=== PATIENT | female | born 1980 | race American Indian/Alaskan Native ===

== ENCOUNTER 2017-07-23 07:25 | Day surgery (SDC) | payer MEDICAID ==
--- NOTE | 2017-07-22 11:43 | Anesthesia Consultation ---
Anesthesia Consult and Med Hx Date of service: 07/23/17 - Airway Anesthetic Teeth Evaluation: Good ROM Head & Neck: Adequate Mental/Hyoid Distance: Adequate Mallampati Class: Class II Intubation Access Assessment: Probably Good - Pulmonary Exam CTA: Yes - Pulmonary Hx Smoking: Yes (1/2PPD) Hx Asthma: Yes (last treated 2 yrs ago) - Central Nervous System Hx Back Pain: Yes Hx Psychiatric Problems: No - Hematic Hx Anemia: Yes
[2017-07-22 12:03] LABS: Basophils % (Auto) 0.5 % (0.0-1.8); Eosinophils % (Auto) 1.8 % (0.0-4.3); Hematocrit 29.7 % (30.3-42.9); Hemoglobin 9.3 gm/dl (10.1-14.3); Mean Corpuscular HGB Conc 31 % (30-34); Mean Corpuscular Hemoglobin 21 pg (28-32); Mean Corpuscular Volume 67 fl (79-97); Platelet Count 240 K/mm3 (140-440); Red Blood Count 4.46 M/mm3 (3.65-5.03); Red Cell Distribution Width 20.2 % (13.2-15.2)
[~2017-07-23 07:25] MED LIST: DECADRON ONE; DILAUDID ONE; DIPRIVAN 10 MG/ML IV ONE; LACTATED RINGERS 1,000 ML IV SCH; PEPCID PO NR; VERSED IV NR; XYLOCAINE MPF 2% ONE; ZOFRAN ONE
--- NOTE | 2017-07-23 07:46 | Short Stay Summary ---
Short Stay Documentation Date of service: 07/23/17 Narrative H&P: Pt is a 37yo BF LMP 06/29/17 presents for surgical evaluation and treatment for prolonged heavy vaginal bleeding unresponsive to hormonal therapy. She is now scheduled for a Novasure endometrial ablation. - History Principal diagnosis: DUB H&P: obtained from office Past Medical History: other (asthma; depression) Past Surgical History: , hernia repair, Other (multiple neck surgeries) Social history: no significant social history, single - Allergies and Medications Current Medications: Allergies codeine Allergy (Verified 07/20/17 16:42) respiratory issues, itch latex Allergy (Verified 07/20/17 16:42) whelps Home Medications Medication Instructions Recorded Confirmed Last Taken Type Gabapentin [Gralise] 600 mg PO BID 07/20/17 07/20/17 Unknown History Oxycodone HCl/Acetaminophen 1 each PO Q6HR PRN 07/20/17 07/20/17 Unknown History [Percocet 10/325 mg] Active Medications Lactated Ringer's (Lactated Ringers) 1,000 mls @ 100 mls/hr IV DIRECT REID - Physical exam General appearance: no acute distress Integumentary: no rash HEENT: Atraumatic Lungs: Clear to auscultation Breasts: deferred Heart: Regular rate Gastrointestinal: normal Female Genitourinary: deferred Rectal Exam: deferred Extremities: no ischemia Neurological: Normal gait, Normal speech - Brief post op/procedure progress note Date of procedure: 07/23/17 Pre-op diagnosis: Menometrorrhagia Post-op diagnosis: same Procedure: 1. Hysteroscopy 2. Novasure endometrial ablation Anesthesia: MAC Findings: An enlarged uterus with uterine cavity length of 5.0cm, cavity width of 4.8cm and [address] of Power was used for 104 seconds to perform the ablation. Surgeon: JAYLENE JOLLEY Estimated blood loss: none Pathology: none Condition: stable - Hospital course Hospital course: Unremarkable. - Disposition Condition at discharge: Good Disposition: DC-01 TO HOME OR SELFCARE - Discharge Diagnoses (1) Menometrorrhagia Status: Chronic Short Stay Discharge Plan Activity: no restrictions Diet: regular Follow up with: PRIMARY CARE, [Primary Care Provider] - 7 Days JAYLENE JOLLEY MD [Staff Physician] - 14 Days Prescriptions: HYDROcodone/APAP 5-325 [[place] 5/325] 1 each PO Q6HR PRN #20 tablet PRN Reason: Pain
[2017-07-23] MEDS ORDERED: ANCEF/STERILE WATER 2 GM/20 ML 2 GM/20 ML SYRINGE IV NR (08:00)
[2017-07-23] MEDS ORDERED: ZOFRAN ONE (08:53)
[2017-07-23] MEDS ORDERED: PEPCID PO NR (09:00)
[2017-07-23] MEDS ORDERED: VERSED IV NR (09:00)
[2017-07-23] MEDS ORDERED: ZOFRAN IV NR (09:00)
--- NOTE | 2017-07-23 09:19 | Anesthesia Day of Surgery ---
Anesthesia Day of Surgery - Day of Surgery Patient Examined: Yes Patient H&P Reviewed: Yes Patient is NPO: Yes
[2017-07-23] MEDS ORDERED: PERCOCET 5/325 PO PRN (09:20)
[2017-07-23] MEDS ORDERED: NACL 0.9% IR ONE ×2 (10:21)
[2017-07-23] MEDS: DILAUDID IV PRN ×2 (10:40→10:50)
--- NOTE | 2017-07-23 11:37 | Operative Report ---
Operative Report Operative Report: Date of procedure: 07/23/2017 Pre-operative diagnosis: Menometrorrhagia Post-operative diagnosis: Same Procedure name(s): 1. Hysteroscopy 2. NovaSure endometrial ablation Surgeon: Melvin Eden MD Desulphuring Operator: None Anesthesia: Gen. Zimmerman EBL: Minimal Findings: An enlarged uterus with uterine cavity length of 5.0 cm, cavity width 4.8 cm, and 132 W of Power used for 104 seconds to perform the ablation. Procedure: After the patient was correctly identified, she was prepped and draped in the usual sterile fashion and placed in the dorsolithotomy position. First the bladder was emptied using a straight catheter, A speculum was placed in the vaginal vault and the anterior lip of the cervix was grasped using a single-tooth tenaculum. The uterus was sounded to 9 cm, and the uterine cavity length was measured to 5 cm. The cervical os was sequentially dilated, and the hysteroscope was introduced into the cervical canal. Visualization of the endometrial cavity found no polyps or masses, with areas of lush endometrial tissue. The hysteroscope was then removed and replaced with the NovaSure device. The uterine cavity width was 4.8 cm. After testing the NovaSure device , the ablation was performed using 132 W of Power for 104 seconds. The NovaSure device was removed and replaced by the hysteroscope, which showed excellent ablation of endometrial cavity. At this point the procedure was considered complete. All instruments removed from the vagina, the patient tolerated the procedure well and was transported to recovery in stable condition.
--- NOTE | 2017-07-23 11:53 | Post Anesthesia Evaluation ---
- Post Anesthesia Evaluation Patient Participated: Yes Airway Patent: Yes Stable Respiratory Function: Yes Temp > 96.8F: Yes Pain Manageable: Yes Adequeate Hydration: Yes Anesthesia Complications: No
[2017-07-23] MEDS ORDERED: PERCOCET 5/325 PO ONE (12:30)
[2017-07-23 13:32] VITALS: BP 127/87
== END 2017-07-23 13:34 | disposition home or self-care (01) ==
LOC: OR 07:25
PROVIDERS: ATTEND Obstetrics & Gynecology
DX: N92.1 Excessive and frequent menstruation with irregular cycle (principal); J45.909 Unspecified asthma, uncomplicated; D64.9 Anemia, unspecified; I10 Essential (primary) hypertension; F32.9 Major depressive disorder, single episode, unspecified; F17.210 Nicotine dependence, cigarettes, uncomplicated; Z88.5 Allergy status to narcotic agent; Z91.040 Latex allergy status; Z98.890 Other specified postprocedural states; Z79.899 Other long term (current) drug therapy
CPT/HCPCS: 36415; 58563; 84703; 85025; A4217; J0690; J1100; J1170; J2250; J2405; J2704; J7120